=== PATIENT | female | born 1950 | race Caucasian/White ===

== ENCOUNTER 2025-02-07 15:47 | Emergency (ER) | payer OTHER ==
[2025-02-07 16:33] VITALS: TEMP 98.2; BMI 28.7
[2025-02-07 17:27] LABS: ABSOLUTE IMMATURE GRANULOCYTES 0.02 x10^3/uL (0.0-0.031); BASOPHILS # 0.03 x10^3/uL (0.01-0.08); EOSINOPHIL % 0.8 % (0.7-5.8); EOSINOPHILS # 0.06 x10^3/uL (0.04-0.36); HEMATOCRIT 35.1 % (34.1-44.9); HEMOGLOBIN 11.6 g/dL (11.2-15.7); MEAN CELL VOLUME 93.1 fl (79.4-94.8); MEAN PLT VOLUME 10.3 fl (9.4-12.3); MONOCYTE # 0.51 x10^3/uL (0.24-0.86); MONOCYTE % 7.1 % (4.7-12.5); PLATELET COUNT # 260 x10^3/uL (182-369); RDW 13.2 % (12.4-16.6)
[2025-02-07 17:39] LABS: INR 1.07 (0.83-1.09); PROTHROMBIN TIME (PATIENT) 11.8 SEC (9.7-13.0)
[2025-02-07 17:42] LABS: ACTIVATED PTT 29.6 SECONDS (25.2-36.5)
[2025-02-07 17:49] LABS: POTASSIUM 3.7 mmol/L (3.5-5.1)
[2025-02-07 17:50] LABS: CALCIUM 8.9 mg/dL (8.5-10.1)
[2025-02-07 17:51] LABS: ALBUMIN 3.7 g/dl (3.4-5.0); BLOOD UREA NITROGEN 18.2 mg/dL (7-18)
[2025-02-07 17:54] LABS: CREATININE 0.8 mg/dL (0.55-1.3)
[2025-02-07 17:56] LABS: BILIRUBIN,TOTAL 0.5 mg/dL (0.2-1); TOT PROT 6.9 g/dl (6.4-8.2)
[2025-02-07 17:59] LABS: N-TERMINAL BNP 126.4 pg/ml (5-125)
[2025-02-07 22:15] VITALS: BP 145/72; PULSE 71; RESP 19
== END 2025-02-07 22:15 | disposition home or self-care (01) ==
LOC: JER 15:47
DX: R07.2 Precordial pain (principal); R29.898 Other symptoms and signs involving the musculoskeletal system
CPT/HCPCS: 0241U-QW; 36415; 70450-TC; 71045-TC-FY; 80053; 83735; 83880; 84484; 85025; 85610; 85730; 93005; 93010; 99285-25